=== PATIENT | male | born 1935 | race Caucasian/White ===

== ENCOUNTER 2022-04-05 15:58 | Inpatient (IN) | payer MEDICARE ==
[2022-04-06] MEDS ORDERED: HYDROcodone/Acetaminophen 10/325 mg Tablet PO PRN (13:22)
[2022-04-06] MEDS ORDERED: Nitroglycerin 0.4 MG TAB (25 Tab Bottle) SL PRN (13:22)
[2022-04-06] MEDS ORDERED: Dextrose 50% Abboject 50 ML SYRINGE SLOW IVP PRN (13:26)
[2022-04-06] MEDS ORDERED: Bisacodyl 5 MG TAB PO PRN (13:26)
[2022-04-06] MEDS: Albuterol 200 PUFF (6.7GM INHALER) INH SCH ×3 (14:40→22:59)
[2022-04-06] MEDS: Tamsulosin HCl 0.4 MG CAP PO SCH (21:35)
[2022-04-06] MEDS: Atorvastatin Calcium 40 MG TAB PO SCH (21:35)
[2022-04-06] MEDS: risperiDONE 0.5 MG TAB PO SCH (21:35)
[2022-04-06] MEDS: predniSONE 5 MG TAB PO SCH (21:35)
[2022-04-07] MEDS: Albuterol 200 PUFF (6.7GM INHALER) INH SCH ×7 (02:26→21:41)
[2022-04-07 06:09] LABS: #Eosinphils 0.1 thou/uL (0.0-0.7); #Lymphocytes 0.8 thou/uL (1.20-3.40); #Monocytes 0.5 thou/uL (0.11-0.59); #Neutrophils 8.5 thou/uL (1.40-6.50); %Basophils 0.4 % (0.0-1.0); %Eosinophils 1.1 % (0.0-10.0); %Lymphocytes 7.7 % (21.0-51.0); %Monocytes 5.2 % (0.0-10.0); %Neutrophils 85.6 % (42.0-75.0); Hemoglobin 10.4 g/dL (14.0-18.0); Mean Corpuscular HGB CONC 31.7 g/dL (32.0-36.0); Mean Corpuscular Hemoglobin 31.6 pg (27.0-31.0); Mean Corpuscular Volume 99.9 fL (78.0-98.0); Mean Platelet Volume 9.2 fL (7.4-10.4); Platelet Count 204 thou/uL (130-400); RBC Distribution Width 13.1 % (11.5-14.5); White Blood Cell (WBC) Count 9.9 thou/uL (4.8-10.8)
[2022-04-07 06:11] LABS: ALT (SGPT) 28 U/L (8-55); AST (SGOT) 40 U/L (5-34); Albumin 2.6 g/dL (3.4-4.8); Alkaline Phosphatase 52 U/L (40-110); Anion Gap 14 mmol/L (10-20); BUN (Urea Nitrogen) 8 mg/dL (8.4-25.7); Bilirubin, Total 0.8 mg/dL (0.2-1.2); Calc. Creatinine Clearance 101 mL/min (70-130); Carbon Dioxide 22 mmol/L (23-31); Chloride 100 mmol/L (98-107); Estimated GFR 90; Globulin 3.1 g/dL (2.4-3.5); Glucose 134 mg/dL (83-110); Potassium 3.4 mmol/L (3.5-5.1); Protein, Total 5.7 g/dL (5.8-8.1); Sodium 133 mmol/L (136-145)
[2022-04-07] MEDS ORDERED: Potassium Chloride 20 MEQ TAB PO SCH (08:45)
[2022-04-07] MEDS ORDERED: Fluticasone Propionate Nasal Spray 16 gm Bottle NASAL SCH (09:00)
[2022-04-07] MEDS: Cyanocobalamin (Vitamin B-12) 1,000 MCG TAB PO SCH (09:27)
[2022-04-07] MEDS: Aspirin Chewable 81 MG TAB PO SCH (09:27)
[2022-04-07] MEDS: Cholecalciferol (Vitamin D3) 400 UNITS TAB PO SCH (09:28)
[2022-04-07] MEDS: Benztropine 1 MG TAB PO SCH ×2 (09:28→09:29)
[2022-04-07] MEDS: Clopidogrel Bisulfate 75 MG TAB PO SCH (09:28)
[2022-04-07] MEDS: Enoxaparin Sodium 40 MG/0.4 ML SYRINGE SC SCH (09:31)
[2022-04-07] MEDS: Folic Acid 1 MG TAB PO SCH (09:32)
[2022-04-07] MEDS: predniSONE 5 MG TAB PO SCH ×2 (09:41→21:42)
[2022-04-07] MEDS ORDERED: HYDROcodone/Acetaminophen 10/325 mg Tablet PO PRN (10:30)
[2022-04-07] MEDS: Atorvastatin Calcium 40 MG TAB PO SCH (21:42)
[2022-04-07] MEDS: Tamsulosin HCl 0.4 MG CAP PO SCH (21:42)
[2022-04-07] MEDS: risperiDONE 0.5 MG TAB PO SCH (21:42)
[2022-04-08] MEDS: Albuterol 200 PUFF (6.7GM INHALER) INH SCH ×6 (02:56→21:47)
[2022-04-08] MEDS: Aspirin Chewable 81 MG TAB PO SCH ×2 (09:00→09:52)
[2022-04-08] MEDS: predniSONE 5 MG TAB PO SCH ×3 (09:00→21:48)
[2022-04-08] MEDS: Cholecalciferol (Vitamin D3) 400 UNITS TAB PO SCH ×2 (09:00→09:52)
[2022-04-08] MEDS: Folic Acid 1 MG TAB PO SCH ×2 (09:00→09:52)
[2022-04-08] MEDS: Cyanocobalamin (Vitamin B-12) 1,000 MCG TAB PO SCH ×2 (09:00→09:53)
[2022-04-08] MEDS: Clopidogrel Bisulfate 75 MG TAB PO SCH ×2 (09:00→09:53)
[2022-04-08] MEDS: Fluticasone Propionate Nasal Spray 16 gm Bottle NASAL SCH (09:53)
[2022-04-08] MEDS: Enoxaparin Sodium 40 MG/0.4 ML SYRINGE SC SCH (09:53)
[2022-04-08 12:03] LABS: Anion Gap 17 mmol/L (10-20); BUN (Urea Nitrogen) 7 mg/dL (8.4-25.7); Calc. Creatinine Clearance 111 mL/min (70-130); Calcium 8.2 mg/dL (7.8-10.44); Carbon Dioxide 19 mmol/L (23-31); Chloride 101 mmol/L (98-107); Estimated GFR 93; Glucose 114 mg/dL (83-110); Potassium 3.2 mmol/L (3.5-5.1); Sodium 134 mmol/L (136-145)
[2022-04-08] MEDS ORDERED: Chloraseptic Spray 180 ml Bottle PO PRN (12:08)
[2022-04-08] MEDS ORDERED: Benztropine 1 MG TAB PO SCH (12:15)
[2022-04-08] MEDS: Atorvastatin Calcium 40 MG TAB PO SCH (21:48)
[2022-04-08] MEDS: risperiDONE 0.5 MG TAB PO SCH (21:48)
[2022-04-08] MEDS: Tamsulosin HCl 0.4 MG CAP PO SCH (21:48)
[2022-04-09] MEDS: Albuterol 200 PUFF (6.7GM INHALER) INH SCH ×6 (02:32→22:19)
[2022-04-09 05:56] LABS: Anion Gap 17 mmol/L (10-20); BUN (Urea Nitrogen) 6 mg/dL (8.4-25.7); Calc. Creatinine Clearance 109 mL/min (70-130); Calcium 8.3 mg/dL (7.8-10.44); Carbon Dioxide 21 mmol/L (23-31); Chloride 100 mmol/L (98-107); Estimated GFR 92; Glucose 150 mg/dL (83-110); Sodium 135 mmol/L (136-145)
[2022-04-09 06:02] LABS: Potassium 2.9 mmol/L (3.5-5.1)
[2022-04-09] MEDS ORDERED: Potassium Chloride 20 MEQ TAB PO SCH ×2 (06:45→12:00)
[2022-04-09] MEDS ORDERED: Potassium Bicarbonate/Cit Ac 25 MEQ TAB PO SCH ×2 (07:00→12:30)
[2022-04-09] MEDS: Enoxaparin Sodium 40 MG/0.4 ML SYRINGE SC SCH (07:59)
[2022-04-09] MEDS: Clopidogrel Bisulfate 75 MG TAB PO SCH (08:00)
[2022-04-09] MEDS: Folic Acid 1 MG TAB PO SCH (08:00)
[2022-04-09] MEDS: predniSONE 5 MG TAB PO SCH ×2 (08:00→21:00)
[2022-04-09] MEDS: Aspirin Chewable 81 MG TAB PO SCH (08:00)
[2022-04-09] MEDS: Benztropine 1 MG TAB PO SCH ×2 (08:00→18:37)
[2022-04-09] MEDS: Cyanocobalamin (Vitamin B-12) 1,000 MCG TAB PO SCH (08:00)
[2022-04-09] MEDS: Cholecalciferol (Vitamin D3) 400 UNITS TAB PO SCH (08:01)
[2022-04-09] MEDS: Fluticasone Propionate Nasal Spray 16 gm Bottle NASAL SCH (08:02)
[2022-04-09] MEDS: Bisacodyl 10 MG SUPP PR PRN (11:18)
[2022-04-09] MEDS: HumaLOG 300 UNITS/3 ML VIAL SC PRN (12:40)
[2022-04-09 16:43] LABS: Anion Gap 18 mmol/L (10-20); BUN (Urea Nitrogen) 6 mg/dL (8.4-25.7); Calc. Creatinine Clearance 107 mL/min (70-130); Calcium 8.3 mg/dL (7.8-10.44); Carbon Dioxide 21 mmol/L (23-31); Chloride 99 mmol/L (98-107); Estimated GFR 93; Glucose 137 mg/dL (83-110); Magnesium 1.6 mg/dL (1.6-2.6); Potassium 3.5 mmol/L (3.5-5.1); Sodium 134 mmol/L (136-145)
[2022-04-09] MEDS: Tamsulosin HCl 0.4 MG CAP PO SCH (21:00)
[2022-04-09] MEDS: Atorvastatin Calcium 40 MG TAB PO SCH (21:00)
[2022-04-09] MEDS: risperiDONE 0.5 MG TAB PO SCH (21:00)
[2022-04-10] MEDS: Albuterol 200 PUFF (6.7GM INHALER) INH SCH ×6 (02:14→22:23)
[2022-04-10] MEDS: HumaLOG 300 UNITS/3 ML VIAL SC PRN (06:01)
[2022-04-10 06:14] LABS: Anion Gap 16 mmol/L (10-20); BUN (Urea Nitrogen) 5 mg/dL (8.4-25.7); Calc. Creatinine Clearance 103 mL/min (70-130); Calcium 8.7 mg/dL (7.8-10.44); Carbon Dioxide 22 mmol/L (23-31); Chloride 101 mmol/L (98-107); Estimated GFR 92; Glucose 169 mg/dL (83-110); Magnesium 1.7 mg/dL (1.6-2.6); Potassium 3.4 mmol/L (3.5-5.1); Sodium 136 mmol/L (136-145)
[2022-04-10] MEDS: Fluticasone Propionate Nasal Spray 16 gm Bottle NASAL SCH (07:59)
[2022-04-10] MEDS: Cholecalciferol (Vitamin D3) 400 UNITS TAB PO SCH (08:00)
[2022-04-10] MEDS: Enoxaparin Sodium 40 MG/0.4 ML SYRINGE SC SCH (08:00)
[2022-04-10] MEDS: Aspirin Chewable 81 MG TAB PO SCH (08:00)
[2022-04-10] MEDS: Cyanocobalamin (Vitamin B-12) 1,000 MCG TAB PO SCH (08:00)
[2022-04-10] MEDS: Folic Acid 1 MG TAB PO SCH (08:01)
[2022-04-10] MEDS: Benztropine 1 MG TAB PO SCH (08:01)
[2022-04-10] MEDS: predniSONE 5 MG TAB PO SCH ×2 (08:02→21:01)
[2022-04-10] MEDS: Clopidogrel Bisulfate 75 MG TAB PO SCH (08:02)
[2022-04-10] MEDS ORDERED: Potassium Chloride 20 MEQ TAB PO SCH (16:15)
[2022-04-10] MEDS: Atorvastatin Calcium 40 MG TAB PO SCH (21:01)
[2022-04-10] MEDS: Tamsulosin HCl 0.4 MG CAP PO SCH (21:01)
[2022-04-10] MEDS: risperiDONE 0.5 MG TAB PO SCH (21:01)
[2022-04-11] MEDS: Albuterol 200 PUFF (6.7GM INHALER) INH SCH ×6 (03:05→20:52)
[2022-04-11] MEDS: HumaLOG 300 UNITS/3 ML VIAL SC PRN ×3 (05:53→21:35)
[2022-04-11 06:15] LABS: Anion Gap 17 mmol/L (10-20); BUN (Urea Nitrogen) 8 mg/dL (8.4-25.7); Calc. Creatinine Clearance 94 mL/min (70-130); Calcium 8.7 mg/dL (7.8-10.44); Carbon Dioxide 21 mmol/L (23-31); Chloride 104 mmol/L (98-107); Estimated GFR 89; Glucose 150 mg/dL (83-110); Potassium 3.8 mmol/L (3.5-5.1); Sodium 138 mmol/L (136-145)
[2022-04-11] MEDS: Folic Acid 1 MG TAB PO SCH (08:56)
[2022-04-11] MEDS: Cyanocobalamin (Vitamin B-12) 1,000 MCG TAB PO SCH (08:57)
[2022-04-11] MEDS: predniSONE 5 MG TAB PO SCH ×2 (08:57→20:53)
[2022-04-11] MEDS: Clopidogrel Bisulfate 75 MG TAB PO SCH (08:57)
[2022-04-11] MEDS: Benztropine 1 MG TAB PO SCH (08:57)
[2022-04-11] MEDS: Cholecalciferol (Vitamin D3) 400 UNITS TAB PO SCH (08:58)
[2022-04-11] MEDS: Aspirin Chewable 81 MG TAB PO SCH (08:58)
[2022-04-11] MEDS: Enoxaparin Sodium 40 MG/0.4 ML SYRINGE SC SCH (08:58)
[2022-04-11] MEDS: Fluticasone Propionate Nasal Spray 16 gm Bottle NASAL SCH (08:59)
[2022-04-11] MEDS: ALPRAZolam 0.25 MG TAB PO PRN (20:52)
[2022-04-11] MEDS: Tamsulosin HCl 0.4 MG CAP PO SCH (20:53)
[2022-04-11] MEDS: Atorvastatin Calcium 40 MG TAB PO SCH (20:53)
[2022-04-11] MEDS: risperiDONE 0.5 MG TAB PO SCH (20:53)
[2022-04-12] MEDS: Albuterol 200 PUFF (6.7GM INHALER) INH SCH ×6 (01:50→21:14)
[2022-04-12] MEDS: HumaLOG 300 UNITS/3 ML VIAL SC PRN ×3 (06:08→21:15)
[2022-04-12 06:14] LABS: Anion Gap 15 mmol/L (10-20); BUN (Urea Nitrogen) 11 mg/dL (8.4-25.7); Calc. Creatinine Clearance 87 mL/min (70-130); Calcium 8.6 mg/dL (7.8-10.44); Carbon Dioxide 22 mmol/L (23-31); Chloride 104 mmol/L (98-107); Estimated GFR 87; Glucose 191 mg/dL (83-110); Potassium 3.4 mmol/L (3.5-5.1); Sodium 138 mmol/L (136-145)
[2022-04-12] MEDS: Enoxaparin Sodium 40 MG/0.4 ML SYRINGE SC SCH (07:55)
[2022-04-12] MEDS: Fluticasone Propionate Nasal Spray 16 gm Bottle NASAL SCH (07:56)
[2022-04-12] MEDS: Aspirin Chewable 81 MG TAB PO SCH (07:57)
[2022-04-12] MEDS: Cholecalciferol (Vitamin D3) 400 UNITS TAB PO SCH (07:58)
[2022-04-12] MEDS: Folic Acid 1 MG TAB PO SCH (07:59)
[2022-04-12] MEDS: Cyanocobalamin (Vitamin B-12) 1,000 MCG TAB PO SCH (07:59)
[2022-04-12] MEDS: predniSONE 5 MG TAB PO SCH ×2 (08:01→21:15)
[2022-04-12] MEDS: Benztropine 1 MG TAB PO SCH (08:01)
[2022-04-12] MEDS: Clopidogrel Bisulfate 75 MG TAB PO SCH (08:01)
[2022-04-12] MEDS: Benzonatate 100 MG CAP PO PRN (10:11)
[2022-04-12] MEDS: Atorvastatin Calcium 40 MG TAB PO SCH (21:15)
[2022-04-12] MEDS: risperiDONE 0.5 MG TAB PO SCH (21:15)
[2022-04-12] MEDS: ALPRAZolam 0.25 MG TAB PO PRN (21:15)
[2022-04-12] MEDS: Tamsulosin HCl 0.4 MG CAP PO SCH (21:15)
[2022-04-13] MEDS: Albuterol 200 PUFF (6.7GM INHALER) INH SCH ×5 (02:10→18:33)
[2022-04-13 06:16] LABS: Anion Gap 14 mmol/L (10-20); BUN (Urea Nitrogen) 12 mg/dL (8.4-25.7); Calc. Creatinine Clearance 87 mL/min (70-130); Calcium 8.7 mg/dL (7.8-10.44); Carbon Dioxide 24 mmol/L (23-31); Chloride 106 mmol/L (98-107); Estimated GFR 87; Glucose 172 mg/dL (83-110); Potassium 3.5 mmol/L (3.5-5.1); Sodium 140 mmol/L (136-145)
[2022-04-13] MEDS: HumaLOG 300 UNITS/3 ML VIAL SC PRN ×2 (06:22→16:17)
[2022-04-13] MEDS: Enoxaparin Sodium 40 MG/0.4 ML SYRINGE SC SCH (07:37)
[2022-04-13] MEDS: Fluticasone Propionate Nasal Spray 16 gm Bottle NASAL SCH (07:38)
[2022-04-13] MEDS: Cholecalciferol (Vitamin D3) 400 UNITS TAB PO SCH (07:40)
[2022-04-13] MEDS: Aspirin Chewable 81 MG TAB PO SCH (07:40)
[2022-04-13] MEDS: predniSONE 5 MG TAB PO SCH ×2 (07:41→20:20)
[2022-04-13] MEDS: Clopidogrel Bisulfate 75 MG TAB PO SCH (07:41)
[2022-04-13] MEDS: Benztropine 1 MG TAB PO SCH (07:41)
[2022-04-13] MEDS: Folic Acid 1 MG TAB PO SCH (07:41)
[2022-04-13] MEDS: Cyanocobalamin (Vitamin B-12) 1,000 MCG TAB PO SCH (07:41)
[2022-04-13] MEDS: risperiDONE 0.5 MG TAB PO SCH (20:20)
[2022-04-13] MEDS: Atorvastatin Calcium 40 MG TAB PO SCH (20:20)
[2022-04-13] MEDS: ALPRAZolam 0.25 MG TAB PO PRN (20:20)
[2022-04-13] MEDS: Tamsulosin HCl 0.4 MG CAP PO SCH (20:21)
[2022-04-14] MEDS: Albuterol 200 PUFF (6.7GM INHALER) INH SCH ×7 (00:03→22:04)
[2022-04-14 06:07] LABS: Anion Gap 13 mmol/L (10-20); BUN (Urea Nitrogen) 13 mg/dL (8.4-25.7); Calc. Creatinine Clearance 87 mL/min (70-130); Calcium 8.7 mg/dL (7.8-10.44); Carbon Dioxide 25 mmol/L (23-31); Chloride 107 mmol/L (98-107); Estimated GFR 87; Glucose 178 mg/dL (83-110); Potassium 4.1 mmol/L (3.5-5.1); Sodium 141 mmol/L (136-145)
[2022-04-14] MEDS: HumaLOG 300 UNITS/3 ML VIAL SC PRN ×2 (06:31→11:44)
[2022-04-14] MEDS: Folic Acid 1 MG TAB PO SCH (08:04)
[2022-04-14] MEDS: Aspirin Chewable 81 MG TAB PO SCH (08:04)
[2022-04-14] MEDS: Cyanocobalamin (Vitamin B-12) 1,000 MCG TAB PO SCH (08:05)
[2022-04-14] MEDS: Benztropine 1 MG TAB PO SCH (08:07)
[2022-04-14] MEDS: Clopidogrel Bisulfate 75 MG TAB PO SCH (08:07)
[2022-04-14] MEDS: Enoxaparin Sodium 40 MG/0.4 ML SYRINGE SC SCH (08:07)
[2022-04-14] MEDS: predniSONE 5 MG TAB PO SCH (08:07)
[2022-04-14] MEDS: Polyethylene Glycol 3350 17 GM Packet PO SCH (08:07)
[2022-04-14] MEDS: Cholecalciferol (Vitamin D3) 400 UNITS TAB PO SCH (08:08)
[2022-04-14] MEDS: Fluticasone Propionate Nasal Spray 16 gm Bottle NASAL SCH (08:08)
[2022-04-14] MEDS: Empagliflozin 10 MG TAB PO SCH (09:22)
[2022-04-14] MEDS: Benzonatate 100 MG CAP PO PRN (09:22)
[2022-04-14] MEDS: Senokot S 8.6-50 MG TAB PO PRN (17:47)
[2022-04-14] MEDS: Tamsulosin HCl 0.4 MG CAP PO SCH (20:09)
[2022-04-14] MEDS: risperiDONE 0.5 MG TAB PO SCH (20:09)
[2022-04-14] MEDS: ALPRAZolam 0.25 MG TAB PO PRN (20:09)
[2022-04-14] MEDS: Atorvastatin Calcium 40 MG TAB PO SCH (20:09)
[2022-04-15] MEDS: Albuterol 200 PUFF (6.7GM INHALER) INH SCH ×5 (02:32→17:47)
[2022-04-15 05:08] LABS: Hemoglobin 9.2 g/dL (14.0-18.0); Mean Corpuscular HGB CONC 32.2 g/dL (32.0-36.0); Mean Corpuscular Hemoglobin 31.6 pg (27.0-31.0); Mean Corpuscular Volume 97.9 fL (78.0-98.0); Platelet Count 286 thou/uL (130-400); RBC Distribution Width 12.9 % (11.5-14.5); Red Blood Cell (RBC) Count 2.91 mill/uL (4.70-6.10)
[2022-04-15 05:22] LABS: ALT (SGPT) 21 U/L (8-55); AST (SGOT) 24 U/L (5-34); Albumin 3.4 g/dL (3.4-4.8); Alkaline Phosphatase 68 U/L (40-110); Anion Gap 17 mmol/L (10-20); BUN (Urea Nitrogen) 14 mg/dL (8.4-25.7); Bilirubin, Total 0.7 mg/dL (0.2-1.2); Calc. Creatinine Clearance 81 mL/min (70-130); Carbon Dioxide 22 mmol/L (23-31); Chloride 106 mmol/L (98-107); Estimated GFR 85; Globulin 3.5 g/dL (2.4-3.5); Glucose 114 mg/dL (83-110); Potassium 3.5 mmol/L (3.5-5.1); Protein, Total 6.9 g/dL (5.8-8.1); Sodium 141 mmol/L (136-145)
[2022-04-15] MEDS: Aspirin Chewable 81 MG TAB PO SCH (09:29)
[2022-04-15] MEDS: Cyanocobalamin (Vitamin B-12) 1,000 MCG TAB PO SCH (09:29)
[2022-04-15] MEDS: predniSONE 5 MG TAB PO SCH (09:29)
[2022-04-15] MEDS: Clopidogrel Bisulfate 75 MG TAB PO SCH (09:30)
[2022-04-15] MEDS: Cholecalciferol (Vitamin D3) 400 UNITS TAB PO SCH (09:30)
[2022-04-15] MEDS: Empagliflozin 10 MG TAB PO SCH (09:30)
[2022-04-15] MEDS: Polyethylene Glycol 3350 17 GM Packet PO SCH (09:31)
[2022-04-15] MEDS: Folic Acid 1 MG TAB PO SCH (09:31)
[2022-04-15] MEDS: Benztropine 1 MG TAB PO SCH (09:31)
[2022-04-15] MEDS: Enoxaparin Sodium 40 MG/0.4 ML SYRINGE SC SCH (09:31)
[2022-04-15] MEDS: Fluticasone Propionate Nasal Spray 16 gm Bottle NASAL SCH (09:33)
[2022-04-15] MEDS: Senokot S 8.6-50 MG TAB PO PRN (13:40)
[2022-04-15] MEDS: HumaLOG 300 UNITS/3 ML VIAL SC PRN (17:47)
[2022-04-15] MEDS: ALPRAZolam 0.25 MG TAB PO PRN (20:30)
[2022-04-15] MEDS: Atorvastatin Calcium 40 MG TAB PO SCH (20:30)
[2022-04-15] MEDS: risperiDONE 0.5 MG TAB PO SCH (20:30)
[2022-04-15] MEDS: Tamsulosin HCl 0.4 MG CAP PO SCH (20:30)
[2022-04-16] MEDS: Albuterol 200 PUFF (6.7GM INHALER) INH SCH ×6 (02:46→23:14)
[2022-04-16 06:25] VITALS: BMI 25.2
[2022-04-16] MEDS: Cholecalciferol (Vitamin D3) 400 UNITS TAB PO SCH (08:52)
[2022-04-16] MEDS: Aspirin Chewable 81 MG TAB PO SCH (08:52)
[2022-04-16] MEDS: Benztropine 1 MG TAB PO SCH (08:52)
[2022-04-16] MEDS: Cyanocobalamin (Vitamin B-12) 1,000 MCG TAB PO SCH (08:53)
[2022-04-16] MEDS: Folic Acid 1 MG TAB PO SCH (08:54)
[2022-04-16] MEDS: predniSONE 5 MG TAB PO SCH (08:54)
[2022-04-16] MEDS: Fluticasone Propionate Nasal Spray 16 gm Bottle NASAL SCH (08:54)
[2022-04-16] MEDS: Empagliflozin 10 MG TAB PO SCH (08:54)
[2022-04-16] MEDS: Clopidogrel Bisulfate 75 MG TAB PO SCH (08:54)
[2022-04-16] MEDS: Enoxaparin Sodium 40 MG/0.4 ML SYRINGE SC SCH (08:54)
[2022-04-16] MEDS: HumaLOG 300 UNITS/3 ML VIAL SC PRN ×2 (17:14→20:26)
[2022-04-16] MEDS ORDERED: Milk Of Magnesia 30 ML UDCUP PO SCH (18:15)
[2022-04-16] MEDS: risperiDONE 0.5 MG TAB PO SCH (20:27)
[2022-04-16] MEDS: Tamsulosin HCl 0.4 MG CAP PO SCH (20:27)
[2022-04-16] MEDS: ALPRAZolam 0.25 MG TAB PO PRN (20:27)
[2022-04-16] MEDS: Atorvastatin Calcium 40 MG TAB PO SCH (20:28)
[2022-04-17] MEDS: Albuterol 200 PUFF (6.7GM INHALER) INH SCH ×6 (04:34→22:22)
[2022-04-17] MEDS: Fluticasone Propionate Nasal Spray 16 gm Bottle NASAL SCH (07:23)
[2022-04-17] MEDS: Enoxaparin Sodium 40 MG/0.4 ML SYRINGE SC SCH (07:26)
[2022-04-17] MEDS: predniSONE 5 MG TAB PO SCH (07:27)
[2022-04-17] MEDS: Aspirin Chewable 81 MG TAB PO SCH (07:27)
[2022-04-17] MEDS: Polyethylene Glycol 3350 17 GM Packet PO SCH (07:27)
[2022-04-17] MEDS: Clopidogrel Bisulfate 75 MG TAB PO SCH (07:27)
[2022-04-17] MEDS: Benztropine 1 MG TAB PO SCH (07:28)
[2022-04-17] MEDS: Folic Acid 1 MG TAB PO SCH (07:29)
[2022-04-17] MEDS: Cholecalciferol (Vitamin D3) 400 UNITS TAB PO SCH (07:29)
[2022-04-17] MEDS: Cyanocobalamin (Vitamin B-12) 1,000 MCG TAB PO SCH (07:30)
[2022-04-17] MEDS: Senokot S 8.6-50 MG TAB PO PRN ×2 (09:30→18:03)
[2022-04-17] MEDS: Empagliflozin 10 MG TAB PO SCH (09:31)
[2022-04-17] MEDS: Bisacodyl 10 MG SUPP PR PRN (15:27)
[2022-04-17] MEDS: Tamsulosin HCl 0.4 MG CAP PO SCH (20:18)
[2022-04-17] MEDS: risperiDONE 0.5 MG TAB PO SCH (20:18)
[2022-04-17] MEDS: ALPRAZolam 0.25 MG TAB PO PRN (20:18)
[2022-04-17] MEDS: Atorvastatin Calcium 40 MG TAB PO SCH (20:18)
[2022-04-18] MEDS: Albuterol 200 PUFF (6.7GM INHALER) INH SCH ×6 (04:55→22:13)
[2022-04-18] MEDS: Senokot S 8.6-50 MG TAB PO PRN (08:02)
[2022-04-18] MEDS: Aspirin Chewable 81 MG TAB PO SCH (08:03)
[2022-04-18] MEDS: Empagliflozin 10 MG TAB PO SCH (08:03)
[2022-04-18] MEDS: Cholecalciferol (Vitamin D3) 400 UNITS TAB PO SCH (08:03)
[2022-04-18] MEDS: Benztropine 1 MG TAB PO SCH (08:03)
[2022-04-18] MEDS: Clopidogrel Bisulfate 75 MG TAB PO SCH (08:03)
[2022-04-18] MEDS: Cyanocobalamin (Vitamin B-12) 1,000 MCG TAB PO SCH (08:03)
[2022-04-18] MEDS: predniSONE 5 MG TAB PO SCH (08:03)
[2022-04-18] MEDS: Folic Acid 1 MG TAB PO SCH (08:03)
[2022-04-18] MEDS: Enoxaparin Sodium 40 MG/0.4 ML SYRINGE SC SCH (08:07)
[2022-04-18] MEDS: Fluticasone Propionate Nasal Spray 16 gm Bottle NASAL SCH (08:08)
[2022-04-18] MEDS: HumaLOG 300 UNITS/3 ML VIAL SC PRN (11:51)
[2022-04-18] MEDS: Bisacodyl 10 MG SUPP PR PRN (17:27)
[2022-04-18] MEDS: risperiDONE 0.5 MG TAB PO SCH (20:58)
[2022-04-18] MEDS: Tamsulosin HCl 0.4 MG CAP PO SCH (20:58)
[2022-04-18] MEDS: Atorvastatin Calcium 40 MG TAB PO SCH (20:58)
[2022-04-19] MEDS: Albuterol 200 PUFF (6.7GM INHALER) INH SCH ×6 (02:08→21:34)
[2022-04-19] MEDS: Aspirin Chewable 81 MG TAB PO SCH (08:41)
[2022-04-19] MEDS: predniSONE 5 MG TAB PO SCH (08:41)
[2022-04-19] MEDS: Folic Acid 1 MG TAB PO SCH (08:42)
[2022-04-19] MEDS: Clopidogrel Bisulfate 75 MG TAB PO SCH (08:42)
[2022-04-19] MEDS: Cyanocobalamin (Vitamin B-12) 1,000 MCG TAB PO SCH (08:42)
[2022-04-19] MEDS: Cholecalciferol (Vitamin D3) 400 UNITS TAB PO SCH (08:42)
[2022-04-19] MEDS: Acetaminophen 325 MG TAB PO PRN (08:43)
[2022-04-19] MEDS: Benztropine 1 MG TAB PO SCH (08:44)
[2022-04-19] MEDS: Empagliflozin 10 MG TAB PO SCH (08:45)
[2022-04-19] MEDS: Enoxaparin Sodium 40 MG/0.4 ML SYRINGE SC SCH (08:46)
[2022-04-19] MEDS: Fluticasone Propionate Nasal Spray 16 gm Bottle NASAL SCH (08:48)
[2022-04-19] MEDS: ALPRAZolam 0.25 MG TAB PO PRN (12:42)
[2022-04-19] MEDS: risperiDONE 0.5 MG TAB PO SCH (21:33)
[2022-04-19] MEDS: Atorvastatin Calcium 40 MG TAB PO SCH (21:33)
[2022-04-19] MEDS: Tamsulosin HCl 0.4 MG CAP PO SCH (21:34)
[2022-04-20] MEDS: Benzonatate 100 MG CAP PO PRN (00:59)
[2022-04-20] MEDS: Albuterol 200 PUFF (6.7GM INHALER) INH SCH ×7 (01:45→21:26)
[2022-04-20] MEDS: Aspirin Chewable 81 MG TAB PO SCH (07:45)
[2022-04-20] MEDS: Cyanocobalamin (Vitamin B-12) 1,000 MCG TAB PO SCH (07:45)
[2022-04-20] MEDS: Folic Acid 1 MG TAB PO SCH (07:46)
[2022-04-20] MEDS: Fluticasone Propionate Nasal Spray 16 gm Bottle NASAL SCH (07:47)
[2022-04-20] MEDS: Enoxaparin Sodium 40 MG/0.4 ML SYRINGE SC SCH (07:47)
[2022-04-20] MEDS: Polyethylene Glycol 3350 17 GM Packet PO SCH (07:47)
[2022-04-20] MEDS: Benztropine 1 MG TAB PO SCH (07:47)
[2022-04-20] MEDS: Empagliflozin 10 MG TAB PO SCH (07:48)
[2022-04-20] MEDS: Cholecalciferol (Vitamin D3) 400 UNITS TAB PO SCH (07:48)
[2022-04-20] MEDS: predniSONE 5 MG TAB PO SCH (07:53)
[2022-04-20] MEDS: Clopidogrel Bisulfate 75 MG TAB PO SCH (07:53)
[2022-04-20] MEDS: risperiDONE 0.5 MG TAB PO SCH (21:25)
[2022-04-20] MEDS: Atorvastatin Calcium 40 MG TAB PO SCH (21:25)
[2022-04-20] MEDS: Tamsulosin HCl 0.4 MG CAP PO SCH (21:25)
[2022-04-21] MEDS: Albuterol 200 PUFF (6.7GM INHALER) INH SCH ×6 (03:22→20:25)
[2022-04-21 06:09] LABS: #Basophils 0.1 thou/uL (0.0-0.2); #Eosinphils 0.2 thou/uL (0.0-0.7); #Lymphocytes 1.2 thou/uL (1.20-3.40); #Monocytes 0.5 thou/uL (0.11-0.59); #Neutrophils 4.3 thou/uL (1.40-6.50); %Basophils 1.5 % (0.0-1.0); %Eosinophils 3.9 % (0.0-10.0); %Lymphocytes 18.4 % (21.0-51.0); %Monocytes 8.1 % (0.0-10.0); %Neutrophils 68.1 % (42.0-75.0); Hemoglobin 11.3 g/dL (14.0-18.0); Mean Corpuscular HGB CONC 31.1 g/dL (32.0-36.0); Mean Corpuscular Hemoglobin 30.8 pg (27.0-31.0); Mean Corpuscular Volume 98.8 fL (78.0-98.0); Mean Platelet Volume 8.5 fL (7.4-10.4); Platelet Count 291 thou/uL (130-400); RBC Distribution Width 13.1 % (11.5-14.5); Red Blood Cell (RBC) Count 3.69 mill/uL (4.70-6.10); White Blood Cell (WBC) Count 6.3 thou/uL (4.8-10.8)
[2022-04-21 06:17] LABS: Anion Gap 23 mmol/L (10-20); BUN (Urea Nitrogen) 15 mg/dL (8.4-25.7); Calc. Creatinine Clearance 77 mL/min (70-130); Calcium 8.9 mg/dL (7.8-10.44); Carbon Dioxide 13 mmol/L (23-31); Chloride 103 mmol/L (98-107); Estimated GFR 85; Glucose 70 mg/dL (83-110); Potassium 3.5 mmol/L (3.5-5.1); Sodium 135 mmol/L (136-145)
[2022-04-21] MEDS: predniSONE 5 MG TAB PO SCH (07:48)
[2022-04-21] MEDS: Clopidogrel Bisulfate 75 MG TAB PO SCH (07:48)
[2022-04-21] MEDS: Acetaminophen 325 MG TAB PO PRN (07:49)
[2022-04-21] MEDS: Folic Acid 1 MG TAB PO SCH (07:51)
[2022-04-21] MEDS: Benztropine 1 MG TAB PO SCH (07:52)
[2022-04-21] MEDS: Cyanocobalamin (Vitamin B-12) 1,000 MCG TAB PO SCH (07:52)
[2022-04-21] MEDS: Cholecalciferol (Vitamin D3) 400 UNITS TAB PO SCH (07:52)
[2022-04-21] MEDS: Enoxaparin Sodium 40 MG/0.4 ML SYRINGE SC SCH (07:53)
[2022-04-21] MEDS: Aspirin Chewable 81 MG TAB PO SCH (07:53)
[2022-04-21] MEDS: Polyethylene Glycol 3350 17 GM Packet PO SCH (07:54)
[2022-04-21] MEDS: Fluticasone Propionate Nasal Spray 16 gm Bottle NASAL SCH (07:54)
[2022-04-21] MEDS: ALPRAZolam 0.25 MG TAB PO PRN ×2 (07:56→20:26)
[2022-04-21] MEDS: Senokot S 8.6-50 MG TAB PO PRN (10:28)
[2022-04-21] MEDS: HumaLOG 300 UNITS/3 ML VIAL SC PRN (11:48)
[2022-04-21] MEDS: risperiDONE 0.5 MG TAB PO SCH (20:25)
[2022-04-21] MEDS: Atorvastatin Calcium 40 MG TAB PO SCH (20:26)
[2022-04-21] MEDS: Tamsulosin HCl 0.4 MG CAP PO SCH (20:26)
[2022-04-22] MEDS: Albuterol 200 PUFF (6.7GM INHALER) INH SCH ×6 (02:57→21:49)
[2022-04-22] MEDS: Polyethylene Glycol 3350 17 GM Packet PO SCH (07:57)
[2022-04-22] MEDS: Fluticasone Propionate Nasal Spray 16 gm Bottle NASAL SCH (07:57)
[2022-04-22] MEDS: Enoxaparin Sodium 40 MG/0.4 ML SYRINGE SC SCH (07:57)
[2022-04-22] MEDS: Aspirin Chewable 81 MG TAB PO SCH (07:58)
[2022-04-22] MEDS: Cholecalciferol (Vitamin D3) 400 UNITS TAB PO SCH (07:58)
[2022-04-22] MEDS: Cyanocobalamin (Vitamin B-12) 1,000 MCG TAB PO SCH (07:58)
[2022-04-22] MEDS: Clopidogrel Bisulfate 75 MG TAB PO SCH (08:00)
[2022-04-22] MEDS: predniSONE 5 MG TAB PO SCH (08:00)
[2022-04-22] MEDS: Benztropine 1 MG TAB PO SCH (08:00)
[2022-04-22] MEDS: Folic Acid 1 MG TAB PO SCH (08:00)
[2022-04-22] MEDS: Acetaminophen 325 MG TAB PO PRN (08:59)
[2022-04-22] MEDS: HumaLOG 300 UNITS/3 ML VIAL SC PRN (17:02)
[2022-04-22] MEDS: Atorvastatin Calcium 40 MG TAB PO SCH (20:25)
[2022-04-22] MEDS: Tamsulosin HCl 0.4 MG CAP PO SCH (20:25)
[2022-04-22] MEDS: risperiDONE 0.5 MG TAB PO SCH (20:28)
[2022-04-22] MEDS: ALPRAZolam 0.25 MG TAB PO PRN (20:29)
[2022-04-23] MEDS: Albuterol 200 PUFF (6.7GM INHALER) INH SCH ×6 (02:35→22:31)
[2022-04-23] MEDS: Enoxaparin Sodium 40 MG/0.4 ML SYRINGE SC SCH (07:52)
[2022-04-23] MEDS: Aspirin Chewable 81 MG TAB PO SCH (07:52)
[2022-04-23] MEDS: Cyanocobalamin (Vitamin B-12) 1,000 MCG TAB PO SCH (07:53)
[2022-04-23] MEDS: Acetaminophen 325 MG TAB PO PRN (07:54)
[2022-04-23] MEDS: Cholecalciferol (Vitamin D3) 400 UNITS TAB PO SCH (07:54)
[2022-04-23] MEDS: predniSONE 5 MG TAB PO SCH (07:54)
[2022-04-23] MEDS: Folic Acid 1 MG TAB PO SCH (07:54)
[2022-04-23] MEDS: Benztropine 1 MG TAB PO SCH (07:55)
[2022-04-23] MEDS: Clopidogrel Bisulfate 75 MG TAB PO SCH (07:56)
[2022-04-23] MEDS: Fluticasone Propionate Nasal Spray 16 gm Bottle NASAL SCH (07:58)
[2022-04-23] MEDS: Polyethylene Glycol 3350 17 GM Packet PO SCH (07:58)
[2022-04-23] MEDS: Benzonatate 100 MG CAP PO PRN (20:22)
[2022-04-23] MEDS: Tamsulosin HCl 0.4 MG CAP PO SCH (20:22)
[2022-04-23] MEDS: risperiDONE 0.5 MG TAB PO SCH (20:22)
[2022-04-23] MEDS: Atorvastatin Calcium 40 MG TAB PO SCH (20:22)
[2022-04-23] MEDS: ALPRAZolam 0.25 MG TAB PO PRN (20:22)
[2022-04-24] MEDS: Albuterol 200 PUFF (6.7GM INHALER) INH SCH ×5 (03:06→14:21)
[2022-04-24 08:49] VITALS: BP 121/84; TEMP 97.8
[2022-04-24] MEDS: Fluticasone Propionate Nasal Spray 16 gm Bottle NASAL SCH (09:48)
[2022-04-24] MEDS: Folic Acid 1 MG TAB PO SCH (09:49)
[2022-04-24] MEDS: Cholecalciferol (Vitamin D3) 400 UNITS TAB PO SCH (09:49)
[2022-04-24] MEDS: Cyanocobalamin (Vitamin B-12) 1,000 MCG TAB PO SCH (09:49)
[2022-04-24] MEDS: Aspirin Chewable 81 MG TAB PO SCH (09:49)
[2022-04-24] MEDS: predniSONE 5 MG TAB PO SCH (09:50)
[2022-04-24] MEDS: Clopidogrel Bisulfate 75 MG TAB PO SCH (09:50)
[2022-04-24] MEDS: Enoxaparin Sodium 40 MG/0.4 ML SYRINGE SC SCH (09:50)
[2022-04-24] MEDS: Benztropine 1 MG TAB PO SCH (09:51)
[2022-04-24] MEDS: Polyethylene Glycol 3350 17 GM Packet PO SCH (09:51)
[2022-04-24] MEDS: HumaLOG 300 UNITS/3 ML VIAL SC PRN (11:35)
== END 2022-04-24 16:32 | DRG 947 ==
LOC: NAV ACUTE 04-06 17:02
PROVIDERS: ADMIT Family Medicine; ATTEND Family Medicine
DX: R53.81 Other malaise (principal); I21.4 Non-ST elevation (NSTEMI) myocardial infarction; I50.42 Chronic combined systolic (congestive) and diastolic (congestive) heart failure; C78.00 Secondary malignant neoplasm of unspecified lung; F01.51 Vascular dementia, unspecified severity, with behavioral disturbance; J98.11 Atelectasis; R13.10 Dysphagia, unspecified; C61 Malignant neoplasm of prostate; E11.9 Type 2 diabetes mellitus without complications; E53.8 Deficiency of other specified B group vitamins; I25.10 Atherosclerotic heart disease of native coronary artery without angina pectoris; E78.5 Hyperlipidemia, unspecified; I11.0 Hypertensive heart disease with heart failure; F41.9 Anxiety disorder, unspecified; E55.9 Vitamin D deficiency, unspecified; K59.00 Constipation, unspecified; E87.6 Hypokalemia; N40.1 Benign prostatic hyperplasia with lower urinary tract symptoms; R33.8 Other retention of urine; Z95.1 Presence of aortocoronary bypass graft; Z88.0 Allergy status to penicillin; Z79.899 Other long term (current) drug therapy; Z79.82 Long term (current) use of aspirin; Z86.16 Personal history of COVID-19; Z85.820 Personal history of malignant melanoma of skin; Z87.440 Personal history of urinary (tract) infections; Z79.02 Long term (current) use of antithrombotics/antiplatelets; Z79.52 Long term (current) use of systemic steroids
CPT/HCPCS: 36415; 36416; 71045; 80048; 80053; 83735; 85025; 85027; J1650; J7512